=== PATIENT | female | born 2000 | race Caucasian/White ===

== ENCOUNTER 2019-04-14 23:59 | Emergency (ER) | payer OTHER ==
[~2019-04-14] VITALS: Ht 157.5 cm; Wt 54.4 kg
[~2019-04-14 23:59] MED LIST: POLY119PG PO; PROTONIX40 MG PO
[2019-04-15] MEDS ORDERED: DOLOGEN CAPLET1 EACH PO (02:24)
[2019-04-15] MEDS ORDERED: ZITHROMAX500 MG PO (02:24)
[2019-04-15] MEDS ORDERED: TUSNEL LIQUID178 ML PO (02:24)
== END 2019-04-15 02:43 | disposition home or self-care (01) ==
LOC: ER 23:59
DX: J06.9 Acute upper respiratory infection, unspecified (principal)

== ENCOUNTER 2019-07-23 19:35 | Emergency (ER) | payer OTHER ==
[~2019-07-23] VITALS: Ht 157.5 cm; Wt 56.7 kg
[~2019-07-23 19:35] MED LIST changes: +DOLOGEN CAPLET1 EACH PO; +TUSNEL LIQUID178 ML PO; +ZITHROMAX500 MG PO
[2019-07-23] MEDS ORDERED: TUSICOF CAPLET1 EACH PO (21:34)
[2019-07-23] MEDS ORDERED: ZITHROMAX200 MG PO (21:34)
== END 2019-07-23 22:34 | disposition home or self-care (01) ==
LOC: ER 19:35 → EMR PED 19:36 → ER 19:36 → EMR PED 22:34
DX: B34.9 Viral infection, unspecified (principal); B96.0 Mycoplasma pneumoniae [M. pneumoniae] as the cause of diseases classified elsewhere